=== PATIENT | male | born 1980 | race Caucasian/White ===

== ENCOUNTER 2023-04-08 19:18 | Emergency (ER) | payer BC, OTHER ==
[2023-04-08] MEDS ORDERED: PANTOPRAZOLE 40 MG/10 ML VIAL IVP STA (20:48)
[2023-04-08] MEDS ORDERED: SODIUM CHLORIDE 0.9% 1,000 ML IV STA (20:48)
[2023-04-08] MEDS ORDERED: ONDANSETRON 4 MG/2 ML VIAL IVP STA (20:48)
[2023-04-08 21:23] LABS: Basophils % (A) 0 %; Eosinophils # (A) 0.1 k/uL (0-0.7); Eosinophils % (A) 1 %; HCT 49.5 % (39.0-53.0); HGB 16.2 gm/dL (13.0-17.5); Lymphocytes # (A) 1.5 k/uL (1.0-4.8); Lymphocytes % (A) 13 %; MCH 29.1 pg (25.0-35.0); MCHC 32.7 g/dL (31.0-37.0); Monocytes # (A) 0.7 k/uL (0-1.0); Monocytes % (A) 6 %; Neutrophils # (A) 8.6 k/uL (1.3-7.7); Neutrophils % (A) 78 %; Platelet Count 282 k/uL (150-450); RBC 5.56 m/uL (4.30-5.90); RDW 13.3 % (11.5-15.5)
--- NOTE | 2023-04-08 21:25 | ED ---
Nausea/Vomiting/Diarrhea HPI - General Chief complaint: Nausea/Vomiting/Diarrhea Stated complaint: left side cyst-bowel issues Time Seen by Provider: 04/08/23 20:46 Source: patient, RN notes reviewed, old records reviewed Mode of arrival: ambulatory Limitations: no limitations - History of Present Illness Initial comments: This is a 6-year-old male to the emergency department for evaluation. Patient presents today with multiple complaints. Positive nausea and abdominal pain diarrhea. Patient states she's had chronic diarrhea for months currently with more persistent diarrhea and he believes some discolored so possible blood in the stool. No lightheadedness dizziness or weakness. No recent travel history no sick contacts positive recent medical history of hernia surgery and undiagnosed scalp mass possible cyst. Patient has had imaging of this cyst but he is concerned that is growing in size and causing her more pain. No bright red blood per rectum MD complaint: nausea, abdominal pain -: hour(s) Associated Abdominal Pain: Yes Location: diffuse Radiation: none Severity: moderate Severity scale (1-10): 4 Quality: cramping, aching Consistency: intermittent Improves with: none Worsens with: none Associated Symptoms: loss of appetite, weakness - Related Data Home Medications Medication Instructions Recorded Confirmed Aspirin EC [Ecotrin Low Dose] 81 mg PO DAILY 04/08/23 04/08/23 Cholecalciferol [Vitamin D3 (25 50 mcg PO DAILY 04/08/23 04/08/23 Mcg = 1000 Iu)] Fish Oil/Dha/Epa [Fish Oil 1,200 2 cap PO DAILY 04/08/23 04/08/23 mg Fish Oil] Hydrocortisone Cream 1 applic TOPICAL BID PRN 04/08/23 04/08/23 [Hydrocortisone 1% Cream] Multivitamins, Thera [Multivitamin 1 tab PO DAILY 04/08/23 04/08/23 (formulary)] Allergies Allergy/AdvReac Type Severity Reaction Status Date / Time No Known Allergies Allergy Verified 04/08/23 22:26 Review of Systems ROS Statement: Those systems with pertinent positive or pertinent negative responses have been documented in the HPI. ROS Other: All systems not noted in ROS Statement are negative. Past Medical History Past Medical History: No Reported History History of Any Multi-Drug Resistant Organisms: None Reported Past Surgical History: Hernia Repair Past Psychological History: No Psychological Hx Reported Smoking Status: Current some day smoker Past Alcohol Use History: None Reported Past Drug Use History: Marijuana General Exam Limitations: no limitations General appearance: alert, in no apparent distress Head exam: Present: atraumatic, normocephalic, normal inspection Eye exam: Present: normal appearance, PERRL, EOMI. Absent: scleral icterus, conjunctival injection, periorbital swelling ENT exam: Present: normal exam, mucous membranes moist Neck exam: Present: normal inspection. Absent: tenderness, meningismus, lymphadenopathy Respiratory exam: Present: normal lung sounds bilaterally. Absent: respiratory distress, wheezes, rales, rhonchi, stridor Cardiovascular Exam: Present: regular rate, normal rhythm, normal heart sounds. Absent: systolic murmur, diastolic murmur, rubs, gallop, clicks GI/Abdominal exam: Present: soft, normal bowel sounds. Absent: distended, tenderness, guarding, rebound, rigid Extremities exam: Present: normal inspection, full ROM, normal capillary refill. Absent: tenderness, pedal edema, joint swelling, calf tenderness Back exam: Present: normal inspection Neurological exam: Present: alert, oriented X3, CN II-XII intact Psychiatric exam: Present: normal affect, normal mood Skin exam: Present: warm, dry, intact, normal color. Absent: rash Course Vital Signs 04/08/23 19:53 Temperature 98.2 F Pulse Rate 99 Respiratory 18 Rate Blood Pressure 137/94 O2 Sat by Pulse 98 Oximetry - Reevaluation(s) Reevaluation #1: 04/08/23 22:47 Medical records reviewed Reevaluation #2: 04/08/23 22:47 Patient informed results questions are answered Reevaluation #3: 04/08/23 22:47 No active diarrhea or bloody bowel movements here in the emergency department Reevaluation #4: 04/08/23 22:48 Was pt. sent in by a medical professional or institution? @ -no Did you speak to anyone other than the patient for history? @ -no Did you review nursing and triage notes? @ -agree Were old charts reviewed? @ -no Differential Diagnosis? @ -prior EKG interpreted by me (3pts min.)? @ -yes X-rays interpreted by me (1pt min.)? @ -no CT interpreted by me (1pt min.)? @ -no U/S interpreted by me (1pt. min.)? @ -no What testing was considered but not performed? (CT, X-rays, U/S, labs)? Why? @ -no What meds were considered but not given? Why? @ -no Did you discuss the management of the patient with other professionals? @ -yes DR germain regarding follow up of scalp cyst Did you reconcile home meds? @ -no Was smoking cessation discussed for >3mins.? @ -no Was critical care preformed (if so, how long)? @ -no Were there social determinants of health that impacted care today? How? (Homelessness, low income, unemployed, alcoholism, drug addiction, transportation, low edu. Level, literacy, decrease access to med. care, long term, rehab)? @ -no Was there de-escalation of care discussed even if they declined? (Discuss DNR or withdrawal of care, Hospice)? @ -no What co-morbidities impacted this encounter? (DM, HTN, Smoking, COPD, CAD, C ancer, CVA, Hep., AIDS, mental health diagnosis, sleep apnea, morbid obesity)? @ -no Was patient admitted / discharged? @ -dc Undiagnosed new problem with uncertain prognosis? @ -no Drug Therapy requiring intensive monitoring for toxicity (Heparin, Nitro, Insulin, Cardizem)? @ -no Were any procedures done? @ -no Diagnosis/symptom? @ -diarrhea,scalp cyst Acute, or Chronic, or Acute on Chronic? @ -acute Uncomplicated (without systemic symptoms) or Complicated (systemic symptoms)? @ -no Side effects of treatment? @ -no Exacerbation, Progression, or Severe Exacerbation] @ - Poses a threat to life or bodily function? @ -no 04/08/23 22:52 Reevaluation #5: 04/08/23 22:48 Differential Abdominal Pain Men: Appendicitis, cholecystitis, diverticulosis, ischemic bowel, pancreatitis, hepatitis, UTI, gastroenteritis, AAA, incarcerated hernia, bowel obstruction, constipation, inflammatory bowel, hepatitis, peptic ulcer disease, splenic infarction, perforated viscus, testicular torsion, this is not meant to be an all-inclusive list - Consultations Consultation #1: Spoke with Dr. Germain regarding follow-up regarding patient's scalp cyst Medical Decision Making - Medical Decision Making 42 male to the emergency department for evaluation patient presents today for evaluation of abdominal pain with diarrhea significant occasionally discolored, lab tests are normal here in the ER patient feels well, I did speak with Dr. Germain who will further investigate scalp cyst. - Lab Data Result diagrams: 04/08/23 21:16 04/08/23 21:16 Lab Results 04/08/23 04/08/23 Range/Units 21:16 21:16 WBC 11.0 H (3.8-10.6) k/uL RBC 5.56 (4.30-5.90) m/uL Hgb 16.2 (13.0-17.5) gm/dL Hct 49.5 (39.0-53.0) % MCV 89.0 (80.0-100.0) fL MCH 29.1 (25.0-35.0) pg MCHC 32.7 (31.0-37.0) g/dL RDW 13.3 (11.5-15.5) % Plt Count 282 (150-450) k/uL MPV 8.0 Neutrophils % 78 % Lymphocytes % 13 % Monocytes % 6 % Eosinophils % 1 % Basophils % 0 % Neutrophils # 8.6 H (1.3-7.7) k/uL Lymphocytes # 1.5 (1.0-4.8) k/uL Monocytes # 0.7 (0-1.0) k/uL Eosinophils # 0.1 (0-0.7) k/uL Basophils # 0.0 (0-0.2) k/uL Sodium 142 (137-145) mmol/L Potassium 4.6 (3.5-5.1) mmol/L Chloride 104 (98-107) mmol/L Carbon Dioxide 26 (22-30) mmol/L Anion Gap 12 mmol/L BUN 16 (9-20) mg/dL Creatinine 1.08 (0.66-1.25) mg/dL Est GFR (CKD-EPI)AfAm >90 (>60 ml/min/1.73 sqM) Est GFR (CKD-EPI)NonAf 85 (>60 ml/min/1.73 sqM) Glucose 97 (74-99) mg/dL Calcium 10.2 (8.4-10.2) mg/dL Total Bilirubin 0.7 (0.2-1.3) mg/dL AST 29 (17-59) U/L ALT 50 H (4-49) U/L Alkaline Phosphatase 55 (38-126) U/L Total Protein 8.3 H (6.3-8.2) g/dL Albumin 5.3 H (3.5-5.0) g/dL Amylase 80 (30-110) U/L Lipase 128 (23-300) U/L Disposition Clinical Impression: Dehydration, Gastroenteritis Disposition: HOME SELF-CARE Condition: Good Instructions (If sedation given, give patient instructions): Acute Diarrhea (ED) Is patient prescribed a controlled substance at d/c from ED?: No Referrals: Gigi Germain MD [Primary Care Provider] - 1-2 days Time of Disposition: 22:35
[2023-04-08 21:44] LABS: ALT 50 U/L (4-49); AST 29 U/L (17-59); African American GFR (CKD) >90 (>60 ml/min/1.73 sqM); Albumin 5.3 g/dL (3.5-5.0); Alkaline Phosphatase 55 U/L (38-126); Amylase 80 U/L (30-110); Anion Gap 12 mmol/L; Blood Urea Nitrogen 16 mg/dL (9-20); Calcium 10.2 mg/dL (8.4-10.2); Carbon Dioxide 26 mmol/L (22-30); Chloride 104 mmol/L (98-107); Glucose 97 mg/dL (74-99); Lipase 128 U/L (23-300); Non-African American GFR(CKD) 85 (>60 ml/min/1.73 sqM); Potassium 4.6 mmol/L (3.5-5.1); Sodium 142 mmol/L (137-145); Total Bilirubin 0.7 mg/dL (0.2-1.3); Total Protein 8.3 g/dL (6.3-8.2)
[2023-04-08 22:53] VITALS: BP 130/78; PULSE 84; RESP 16; TEMP 98.8
== END 2023-04-08 22:50 | disposition home or self-care (01) ==
LOC: EC 19:18
DX: K52.9 Noninfective gastroenteritis and colitis, unspecified (principal); E86.0 Dehydration; F17.200 Nicotine dependence, unspecified, uncomplicated; F12.90 Cannabis use, unspecified, uncomplicated
CPT/HCPCS: 36415; 80053; 82150; 83690; 85025; 99284; 96374; 96375; 96361; J2405; C9113

== ENCOUNTER → 2023-08-11 | Outpatient (CLI) | payer OTHER ==
--- NOTE | 2023-08-11 21:49 | EEG ---
ELECTROENCEPHALOGRAM REPORT CLINICAL HISTORY: This is a 43-year-old gentleman with reported headache as well as a seizure. The video EEG is obtained to evaluate for seizure and epileptiform activity. RELEVANT MEDICATIONS: There is no antiepileptic drug that is reported on the tech report. EEG TYPE: A routine 21-channel EEG is performed with video using the 10/20 electrode placement system. DESCRIPTION: Wakefulness is only obtained. During awake state, the posterior-dominant rhythm consists of moderate voltage of 10 to 10.5 Hz activity, that is well modulated and well sustained. There is no physiological sleep architecture seen. There is no focal slowing. INTERICTAL AND ICTAL: None. ACTIVATION PROCEDURE: Photic stimulation did not evoke a posterior driving response. There is no abnormality during the photic stimulation. Hyperventilation is not performed. CLINICAL INTERPRETATION: This is a normal routine EEG. There is no focal slowing, epileptiform discharge, or seizure on the EEG. If the EEG remains to be suspicious, then recommend either a sleep- deprived EEG or a prolonged EEG as an outpatient. Clinical correlation is recommended. JOSE / NIXONN: [id number] /
== END ==
LOC: NEUROMAIN 07:51
PROVIDERS: ATTEND Family Medicine
DX: R56.9 Unspecified convulsions (principal); R42 Dizziness and giddiness
CPT/HCPCS: 95816

== ENCOUNTER → 2023-12-28 | Outpatient (CLI) | payer OTHER ==
--- NOTE | 2023-12-29 17:13 | MR ---
EXAMINATION TYPE: MR sacrum/coccyx wo/w con DATE OF EXAM: 12/28/2023 COMPARISON: None HISTORY: Pt fell on tailbone April 2022 and is still having severe pain, pain now travels down left le g and hip CONTRAST: 11ml mL intravenous Gadavist. TECHNIQUE: Multiplanar, multisequence images of the lumbar spine were acquired. Post contrast imaging was perfor med. FINDINGS: Imaging performed to the sacrum and coccyx in multiple planes. Osseous signal appears normal. No susp icious acute or chronic fractures identified. Sacral canal appears normal. No stenosis is evident. Following contrast, no suspicious enhancement is evident. Sacroiliac joints appear patent. No sacral foraminal stenosis is identified. L5-S1: There is a large right paracentral right lateral disc herniation. Exiting right S1 nerve root displacement is evident. Has contact with the exiting S1 nerve root. Correlate with right S1 radicula r symptoms. No AP spinal canal stenosis is present. Some moderate anterior thecal sac compression is evident. Consider MRI lumbar spine for complete lumbar evaluation. IMPRESSION: 1. No discrete acute or chronic sacral or coccygeal abnormality by MRI. 2. Large right paracentral and right lateral disc herniation with exiting S1 nerve root compression a nd displacement. Correlate for right S1 radicular symptoms. 3. Consider MRI lumbar spine for complete evaluation for lumbar radicular symptoms.
== END | disposition home or self-care (01) ==
LOC: RADMRIMAIN 19:45
PROVIDERS: ATTEND Family Medicine
DX: M53.3 Sacrococcygeal disorders, not elsewhere classified (principal); M54.16 Radiculopathy, lumbar region
CPT/HCPCS: 72197; A9585